=== PATIENT | female | born 2005 | race Caucasian/White ===

== ENCOUNTER 2024-03-24 01:26 | Outpatient (CLI) | payer MEDICAID, SELFPAY ==
[2024-03-24 09:59] LABS: Hemoglobin A1C 4.7 % (<5.7)
[2024-03-24 10:05] LABS: TSH (W/Ref FT4) 2.84 uIU/mL (0.52-4.13)
== END 2024-03-24 01:27 | disposition home or self-care (01) ==
LOC: LBO 01:28
PROVIDERS: PCP Nurse Practitioner Family; Referring Provider Nurse Practitioner Family; Visit Provider Nurse Practitioner Family
DX: E03.9 Hypothyroidism, unspecified (principal); Z87.898 Personal history of other specified conditions
CPT/HCPCS: 36415; 83036; 84443